=== PATIENT | male | born 1950 | race Caucasian/White ===

== ENCOUNTER 2016-03-20 17:33 | Emergency (ER) | payer MEDICARE, OTHER ==
[2016-03-20] MEDS ORDERED: SODIUM CHLORIDE 0.9% 1,000 ML ONE (19:17)
[2016-03-20] MEDS ORDERED: Furosemide 40 MG/4 ML VIAL ONE (23:44)
[2016-03-21] MEDS ORDERED: LIDOCAINE/EPI 1% MDV 20 ML ONE (01:36)
[2016-03-21] MEDS ORDERED: TDaP 0.5 ML VIAL IM.VACC ONE (03:37)
[2016-03-21] MEDS ORDERED: METHYLPRED SOD SUCC 125 MG/2 ML VIAL ONE (03:37)
== END 2016-03-21 03:43 ==
LOC: ER 17:33
CPT/HCPCS: 12001; 36415 ×2; 70450 ×2; 71010 ×2; 73080; 80053 ×2; 80162 ×2; 81003 ×2; 82553 ×2; 83605 ×2; 83735 ×2; 83880 ×2; 84484 ×2; 85025 ×2; 85610 ×2; 85730 ×2; 90471 ×2; 93005 ×2; 96361 ×2; 96374 ×2; 96375 ×2; 99285; J2930